=== PATIENT | female | born 1960 | race African-American/Black ===

== ENCOUNTER 2017-11-22 13:55 | Emergency (ER) | payer OTHER ==
[~2017-11-22] VITALS: Ht 170.2 cm; Wt 47.6 kg
[~2017-11-22 13:55] MED LIST: BACTRIM-DS1 EA PO; NO MEDS
[2017-11-22 14:23] VITALS: BP 122/87
[2017-11-22] MEDS: Morphine Sulfate 4mg/ml Inj IVP ONE ×2 (15:00→15:05)
[2017-11-22 15:37] LABS: BASOPHILS % (AUTO) 0.6 % (0.0-2.0); EOSINOPHILS % (AUTO) 0.5 % (0.0-3.0); HEMATOCRIT 40.4 % (37.0-47.0); HEMOGLOBIN 12.6 G/DL (12.0-16.0); LYMPHOCYTES % (AUTO) 13.5 % (20.0-45.0); MEAN CORPUSCULAR VOLUME 72 FL (80-99); MONOCYTES % (AUTO) 8.7 % (1.0-10.0); NEUTROPHILS % (AUTO) 76.6 % (45.0-75.0); PLATELET COUNT 374 K/UL (150-450); RED BLOOD COUNT 5.65 M/UL (4.20-5.40); RED CELL DISTRIBUTION WIDTH 12.3 % (11.6-14.8); WHITE BLOOD COUNT 10.1 K/UL (4.8-10.8)
[2017-11-22 15:49] LABS: ANION GAP 5 mmol/L (5-15); BLOOD UREA NITROGEN 10 mg/dL (7-18); CALCIUM 9.7 MG/DL (8.5-10.1); CARBON DIOXIDE 31 MMOL/L (21-32); CHLORIDE 103 MMOL/L (98-107); CREATININE 0.7 MG/DL (0.55-1.30); POTASSIUM 3.8 MMOL/L (3.5-5.1); SODIUM 139 MMOL/L (136-145)
[2017-11-22 15:53] LABS: ALANINE AMINOTRANSFERASE 13 U/L (12-78); ALBUMIN 3.7 G/DL (3.4-5.0); ALBUMIN/GLOBULIN RATIO 0.8 (1.0-2.7); ALKALINE PHOSPHATASE 77 U/L (46-116); ASPARTATE AMINO TRANSFERASE 22 U/L (15-37); BILIRUBIN,TOTAL 0.4 MG/DL (0.2-1.0)
[2017-11-22 18:01] LABS: APPEARANCE,URINE CLEAR; BILIRUBIN, URINE NEGATIVE (NEGATIVE); COLOR,URINE PALE YELLOW; GLUCOSE, URINE (UA) NEGATIVE (NEGATIVE); KETONES,URINE 3+ (NEGATIVE); LEUKOCYTE ESTERASE ,URINE 1+ (NEGATIVE); NITRITE,URINE NEGATIVE (NEGATIVE); PH,URINE 6 (4.5-8.0); PROTEIN,URINE 1+ (NEGATIVE); UROBILINOGEN,URINE NORMAL MG/DL (0.0-1.0)
[2017-11-22] MEDS ORDERED: NORCO 5-325 TA1 EACH ORAL (18:13)
[2017-11-22 18:51] VITALS: BP 122/87
[2017-11-22] MEDS ORDERED: MECLIZINE HCL25 MG ORAL (18:53)
--- NOTE | 2017-11-22 20:17 | Emergency Room Report ---
History of Present Illness General Chief Complaint: Abdominal Pain Source: Patient Present Illness HPI 56-year-old female presents ED for evaluation. Patient noting abdominal pain 1 month. Sharp. 10 out of 10. Nonradiating. No aggravating or relieving factors. Denies nausea or vomiting. Patient states she's been feeling weak and dizzy. States she's been losing weight. Had ultrasound done recently which showed ascites. No other aggravating or relieving factors. Denies any other associated symptoms Allergies: Coded Allergies: No Known Allergies (Unverified , 06/30/12) Patient History Past Medical History: none Past Surgical History: none Pertinent Family History: none Social History: Denies: smoking, alcohol use, drug use Last Menstrual Period: 2016 Now: No Immunizations: UTD Reviewed Nursing Documentation: PMH: Agreed, PSxH: Agreed Nursing Documentation-PMH Past Medical History: No Stated History Review of Systems All Other Systems: negative except mentioned in HPI Physical Exam Vital Signs Date Time Temp Pulse Resp B/P (MAP) Pulse Ox O2 Delivery O2 Flow Rate FiO2 11/22/17 14:10 98.3 99 17 122/87 95 Room Air 98.2 Sp02 EP Interpretation: reviewed, normal General Appearance: no apparent distress, alert, GCS 15, non-toxic Head: normocephalic, atraumatic Eyes: bilateral eye normal inspection, bilateral eye PERRL ENT: hearing grossly normal, normal pharynx, no angioedema, normal voice Neck: full range of motion, supple/symm/no masses Respiratory: chest non-tender, lungs clear, normal breath sounds, speaking full sentences Cardiovascular #1: regular rate, rhythm, no edema Cardiovascular #2: 2+ carotid (R), 2+ carotid (L), 2+ radial (R), 2+ radial (L) , 2+ dorsalis pedis (R), 2+ dorsalis pedis (L) Gastrointestinal: normal bowel sounds, soft, non-distended, no guarding, no rebound, tenderness Rectal: deferred Genitourinary: normal inspection, no CVA tenderness Musculoskeletal: back normal, gait/station normal, normal range of motion, non- tender Neurologic: alert, oriented x3, responsive, motor strength/tone normal, sensory intact, speech normal Psychiatric: judgement/insight normal, memory normal, mood/affect normal, no suicidal/homicidal ideation Reflexes: 3+ bicep (R), 3+ bicep (L), 3+ tricep (R), 3+ tricep (L), 3+ knee (R) , 3+ knee (L) Skin: normal color, no rash, warm/dry, well hydrated Lymphatic: no adenopathy Medical Decision Making Diagnostic Impression: Primary Impression: Peritoneal carcinomatosis ER Course Hospital Course 56-year-old F presents to ED with abdominal pain x 1 month. recently had US showing ascites Differential diagnosis includes-appendicitis, cholecystitis, small bowel obstruction, gastritis, Clinical course Patient placed on stretcher. After initial history and physical I ordered labs , IV fluids, pain medications and CT scan Labs - no leukocytosis, electrolytes ok, hb/hct stable, LFTs normal, UA unremarkable CT scan shows peritoneal carcinomatosis with possible ovarian pathology I discussed findings with the patient and family. For an option for admission for further workup. Patient declines admission at this time. I will provide referral to oncology and [facility] [facility]. Patient needs close follow-up with PMD PMD is Dr. Parker. I made him aware of results. He will see patient in his office I feel this is a highly complex case requiring extensive working including EKG/ Rhythm strip, Xray/CT/US, Blood/urine lab work, repeat exams while in ED, and administration of strong opiates/narcotics for pain control, admission to hospital or close patient follow up. Diagnosis - peritoneal carcinomatosis Stable and discharged to home with Rx [place], Meclizine. Followup with PMD, OBGYN, Heme/Onc. Return to ED if symptoms recur or worsen Labs Test 11/22/17 15:19 11/22/17 17:45 White Blood Count 10.1 K/UL (4.8-10.8) Red Blood Count 5.65 M/UL (4.20-5.40) Hemoglobin 12.6 G/DL (12.0-16.0) Hematocrit 40.4 % (37.0-47.0) Mean Corpuscular Volume 72 FL (80-99) Mean Corpuscular Hemoglobin 22.2 PG (27.0-31.0) Mean Corpuscular Hemoglobin Concent 31.1 G/DL (32.0-36.0) Red Cell Distribution Width 12.3 % (11.6-14.8) Platelet Count 374 K/UL (150-450) Mean Platelet Volume 6.6 FL (6.5-10.1) Neutrophils (%) (Auto) 76.6 % (45.0-75.0) Lymphocytes (%) (Auto) 13.5 % (20.0-45.0) Monocytes (%) (Auto) 8.7 % (1.0-10.0) Eosinophils (%) (Auto) 0.5 % (0.0-3.0) Basophils (%) (Auto) 0.6 % (0.0-2.0) Sodium Level 139 MMOL/L (136-145) Potassium Level 3.8 MMOL/L (3.5-5.1) Chloride Level 103 MMOL/L (98-107) Carbon Dioxide Level 31 MMOL/L (21-32) Anion Gap 5 mmol/L (5-15) Blood Urea Nitrogen 10 mg/dL (7-18) Creatinine 0.7 MG/DL (0.55-1.30) Estimat Glomerular Filtration Rate > 60 mL/min (>60) Glucose Level 79 MG/DL (74-106) Calcium Level 9.7 MG/DL (8.5-10.1) Total Bilirubin 0.4 MG/DL (0.2-1.0) Aspartate Amino Transf (AST/SGOT) 22 U/L (15-37) Alanine Aminotransferase (ALT/SGPT) 13 U/L (12-78) Alkaline Phosphatase 77 U/L (46-116) Total Protein 8.2 G/DL (6.4-8.2) Albumin 3.7 G/DL (3.4-5.0) Globulin 4.5 g/dL Albumin/Globulin Ratio 0.8 (1.0-2.7) Lipase 87 U/L (73-393) Human Chorionic Gonadotropin, Quant 5 mIU/mL (1-6) Urine Color Pale yellow Urine Appearance Clear Urine pH 6 (4.5-8.0) Urine Specific [place] 1.015 (1.005-1.035) Urine Protein 1+ (NEGATIVE) Urine Glucose (UA) Negative (NEGATIVE) Urine Ketones 3+ (NEGATIVE) Urine Occult Blood 2+ (NEGATIVE) Urine Nitrite Negative (NEGATIVE) Urine Bilirubin Negative (NEGATIVE) Urine Urobilinogen Normal MG/DL (0.0-1.0) Urine Leukocyte Esterase 1+ (NEGATIVE) Urine RBC 2-4 /HPF (0 - 2) Urine WBC 2-4 /HPF (0 - 2) Urine Squamous Epithelial Cells Few /LPF (NONE/OCC) Urine Bacteria Few /HPF (NONE) Urine Mucus Many /LPF (NONE/OCC) Urine HCG, Qualitative Negative (NEGATIVE) CT/MRI/US Diagnostic Results CT/MRI/US Diagnostic Results : Imaging Test Ordered: CT A/P Impression Peritoneal carcinomatosis with loculated fluid in the peritoneal cavity and omental caking. Mass lesions throughout the pelvis. Primary consideration includes an ovarian source. Last Vital Signs Date Time Temp Pulse Resp B/P (MAP) Pulse Ox O2 Delivery O2 Flow Rate FiO2 11/22/17 18:51 98.2 17 122/87 95 Room Air 208.8 11/22/17 14:10 99 Status: improved Disposition: HOME, SELF-CARE Condition: Stable Scripts Meclizine Hcl* (MECLIZINE*) 25 Mg Tablet 25 MG ORAL THREE TIMES A DAY, #20 TAB Prov: MARLEN WORKMAN M.D. 11/22/17 Hydrocodone Bit/Acetaminophen 5-325* (NORCO 5-325*) 1 Each Tablet 1 TAB ORAL Q6H Y for For Pain, #20 TAB 0 Refills Prov: MARLEN WORKMAN M.D. 11/22/17 Referrals: RAVIN SAVAGE Roman L. KLEYNBERG, LEONID Patient Instructions: Cervical Cancer MARLEN WORKMAN M.D. Nov 22, 2017 20:17
--- NOTE | 2017-11-23 09:05 | Diagnostic Imaging Report ---
Clinical Indication: Abdominal pain x3 weeks Technique: No oral contrast utilized, per emergency room physician request IV administration nonionic contrast. Venous phase spiral acquisition obtained through the abdomen and pelvis. Multiplanar reconstructions were generated. Total dose length product 539.37 mGycm. CTDIvol(s) 10.48 mGy. Dose reduction achieved using automated exposure control Comparison: none Findings: Multiple masses are seen filling the pelvis, mostly contiguous multiple discrete lesions are visualized. Some of these appear to be exophytic uterine masses and some may be ovarian. Abnormal soft tissue masses in the presacral region are clearly extra uterine, however. There is ascites fluid. There is infiltration of the omental fat. Nodules are seen in the inferior pericardial fat There is a 13 mm mass in segment 5 of the liver which is hypoattenuating to the liver demonstrates nonspecific soft tissue attenuation. There is a 22 mm mass in the dome of segment 8 which also demonstrates nonspecific soft tissue attenuation, is hypoattenuating to liver another subcentimeter low-attenuation lesions scattered throughout the liver are too small to characterize. The gallbladder, bile ducts, pancreas, spleen, adrenals are unremarkable. The right kidney demonstrates a 3 mm nonobstructive interpolar region calculus. The right kidney demonstrates a 2 mm upper pole calyceal calculus The left kidney demonstrates a 1.5 cm cyst. Both kidneys demonstrate subcentimeter low-attenuation lesions which are too small to characterize, most likely benign simple cysts. No retroperitoneal adenopathy demonstrated. The appendix is not definitely identified. No evidence of diverticulosis or diverticulitis. No small bowel distention or small bowel wall thickening. No free intraperitoneal air. There is a duodenal diverticulum. There is a small sliding-type hiatal hernia Low-attenuation is seen in the bilateral common femoral veins. While possibly on the basis of flow artifacts, this could represent venous thrombi. Bilateral breast implants are incidentally noted. The bones are unremarkable. Included lung bases are clear Impression: Multiple pelvic masses. While some of these may represent exophytic uterine fibroids, a significant portion of these probably represent ovarian neoplasm. There is evidence of omental involvement and peritoneal carcinomatosis. Ascites fluid is likely malignant At least 2 liver lesions appear to be soft tissue attenuation rather than cystic, and are worrisome for metastases. Others are too small to characterize, although suspect represent small cysts or bile hamartomas Nonobstructive bilateral renal calculi Left renal cyst. Bilateral low-attenuation subcentimeter renal lesions, too small to characterize, most likely benign simple cysts. No further follow-up necessary Incidental findings as noted, including bilateral breast implants, hiatal hernia, duodenal diverticulum Findings are in agreement with the [facility] preliminary report Low-attenuation in the bilateral common femoral veins. While possibly representing flow artifacts, the possibility of venous thrombi should be considered. Consider venous duplex scan for further evaluation. This finding was not described on the [facility] preliminary report, but was discussed by phone with Dr. Parker at the time of interpretation The CT scanner at [facility] is accredited by the [employer] and the scans are performed using protocols designed to limit radiation exposure to as low as reasonably achievable to attain images of sufficient resolution adequate for diagnostic evaluation.
== END 2017-11-22 18:52 | disposition home or self-care (01) ==
LOC: EMR 15:25 → EDBEDREQ 18:02 → CANBEDREQ 18:25 → EMR 18:52
DX: C78.6 Secondary malignant neoplasm of retroperitoneum and peritoneum (principal); N28.1 Cyst of kidney, acquired; K44.9 Diaphragmatic hernia without obstruction or gangrene; Z98.82 Breast implant status; K57.10 Diverticulosis of small intestine without perforation or abscess without bleeding; N20.0 Calculus of kidney
CPT/HCPCS: 36415; 74177; 80053; 81003; 81025; 83690; 84702; 85025; 96374; 96375; 99284; J2270; J2405; Q9967; S0028